=== PATIENT | male | born 1950 | race Caucasian/White ===

== ENCOUNTER 2024-03-06 07:18 | Day surgery (SDC) | payer OTHER, MEDICAID ==
[~2024-03-06] VITALS: Ht 177.8 cm; Wt 79.4 kg
[~2024-03-06 07:18] MED LIST: KETOROLAC TROMETHAMINE 0.5% 5 ML OPHTHALMIC SOLUTION ONE; MOXIFLOXACIN HCL 0.5% 3 ML OPHTHALMIC SOLUTION ONE; PHENYLEPHRINE HCL 2.5% 2 ML OPHTHALMIC SOLUTION ONE; TROPICAMIDE 1% 2 ML OPHTHALMIC SOLUTION ONE
[2024-03-06] MEDS: PHENYLEPHRINE HCL 2.5% 2 ML OPHTHALMIC SOLUTION OS SCH (09:03)
[2024-03-06] MEDS: TROPICAMIDE 1% 2 ML OPHTHALMIC SOLUTION OS SCH (09:03)
[2024-03-06] MEDS: MOXIFLOXACIN HCL 0.5% 3 ML OPHTHALMIC SOLUTION OS SCH (09:05)
[2024-03-06] MEDS: KETOROLAC TROMETHAMINE 0.5% 5 ML OPHTHALMIC SOLUTION OS SCH (09:06)
[2024-03-06] MEDS: RINGERS SOLUTION,LACTATED 500 ML IV ONE (09:12)
[2024-03-06] MEDS: TETRACAINE HCL/PF 0.5% 4 ML OPHTHALMIC SOLUTION ONE (10:00)
[2024-03-06] MEDS: EPINEPHrine 1:1,000 [1 MG/ML] VIAL ONE (10:00)
[2024-03-06] MEDS: POVIDONE-IODINE 5% 30 ML OPHTHALMIC SOLUTION ONE (10:00)
[2024-03-06] MEDS: BALANCED SALT 15 ML OPHTHALMIC IRRIG.SOLN ONE (10:00)
[2024-03-06] MEDS: LIDOCAINE/PF 1% 2 ML VIAL ONE (10:05)
[2024-03-06] MEDS ORDERED: MIDAZOLAM HCL 2 MG/2 ML VIAL IVP ONE (12:00)
[2024-03-06] MEDS ORDERED: CHONDR SULF A SOD/HYALURONATE 1.05 ML KIT IO ONE (12:00)
[2024-03-06] MEDS ORDERED: FentaNYL CITRATE PF 100 MCG/2 ML VIAL IVP ONE (12:00)
== END 2024-03-06 11:02 | disposition home or self-care (01) ==
LOC: SURGERY 07:18
PROVIDERS: ATTEND Ophthalmology
DX: H25.12 Age-related nuclear cataract, left eye (principal)
CPT/HCPCS: 66984; J7321; J0171; J3010; J3490; J2250; V2632